=== PATIENT | male | born 1960 | race Caucasian/White ===

== ENCOUNTER 2024-03-30 17:17 | Emergency (ER) | payer OTHER ==
[~2024-03-30] VITALS: Ht 193 cm; Wt 81.6 kg
[2024-03-30 17:26] VITALS: BP 92/64; PULSE 87; RESP 18; TEMP 98.1; O2SAT 96
[2024-03-30 17:38] VITALS: BP 92/64; PULSE 87; RESP 18; TEMP 98.1; O2SAT 96
== END 2024-03-30 17:37 | disposition home or self-care (01) ==
LOC: MED 17:17
DX: Z02.89 Encounter for other administrative examinations (principal); F10.129 Alcohol abuse with intoxication, unspecified; Y90.9 Presence of alcohol in blood, level not specified; V89.2XXA Person injured in unspecified motor-vehicle accident, traffic, initial encounter; Y93.89 Activity, other specified; Y92.410 Unspecified street and highway as the place of occurrence of the external cause; Y99.8 Other external cause status
CPT/HCPCS: 99283